=== PATIENT | male | born 1960 | race Caucasian/White ===

== ENCOUNTER 2019-10-29 10:52 | Inpatient (IN) | payer BC ==
[2019-10-29] MEDS ORDERED: IPRATROPIUM 0.5 MG/2.5 ML NEBU INHALATION STA (11:14)
[2019-10-29] MEDS ORDERED: SODIUM CHLORIDE 0.9% 1,000 ML IV STA (11:14)
[2019-10-29] MEDS ORDERED: methylPREDNISolone SOD SUCCI 125 MG/2 ML VIAL IV STA (11:14)
[2019-10-29] MEDS ORDERED: ALBUTEROL NEBULIZED 2.5 MG/3 ML INHALATION STA (11:14)
--- NOTE | 2019-10-29 11:17 | ED ---
General Adult HPI - General Chief complaint: Shortness of Breath Stated complaint: ADRIEN Time Seen by Provider: 10/29/19 10:55 Source: patient, EMS, RN notes reviewed, old records reviewed Mode of arrival: EMS Limitations: no limitations - History of Present Illness Initial comments: This is a 59-year-old male who presents emergency department with past medical history significant for COPD. Patient comes in because since three-day history of shortness of breath. Patient states she's also drinking a pint of liquor every single day. Patient states that he also continues smoking. Patient states that the difficulty breathing is gotten worse over the last 3 days. Patient also states he is overall feeling considerably weaker but he thinks is because he is not eating because he is taking so much alcohol. Patient denies any chest pain or palpitations. Patient denies any fever chills or cough per patient denies abdominal pain patient denies nausea vomiting diarrhea. - Related Data Home Medications Medication Instructions Recorded Confirmed FLUoxetine HCL 20 mg PO DAILY 06/28/19 06/28/19 Fluticasone Propionate 110 Mcg 2 puff INHALATION BID PRN 06/28/19 06/29/19 [Flovent 110 Mcg Inhaler (Mhu)] Lisinopril 40 mg PO DAILY 06/28/19 06/28/19 Omeprazole 20 mg PO DAILY 06/28/19 06/28/19 Umeclidinium Brm/Vilanterol Tr 1 puff INHALATION DAILY 06/28/19 06/28/19 [Anoro Ellipta 62.5-25 Mcg INH] hydrOXYzine HCL 25 mg PO HS PRN 06/28/19 06/28/19 traZODone HCL 100 mg PO HS PRN 06/28/19 06/28/19 Previous Rx's Medication Instructions Recorded Amoxicillin/Potassium Clav 1 tab PO Q12HR #14 tab 07/04/19 [Augmentin 875-125 Tablet] Aspirin 81 mg PO DAILY chew 07/04/19 Atorvastatin [Lipitor] 80 mg PO DAILY #30 tab 07/04/19 Metoprolol Tartrate [Lopressor] 25 mg PO BID #60 tab 07/04/19 Thiamine [Vitamin B-1] 100 mg PO BID-W/MEALS tab 07/04/19 amLODIPine [Norvasc] 5 mg PO DAILY #30 tab 07/04/19 predniSONE [Deltasone] 40 mg PO DAILY 4 Days #4 tab 07/04/19 Allergies Allergy/AdvReac Type Severity Reaction Status Date / Time No Known Allergies Allergy Verified 10/29/19 10:57 Review of Systems ROS Statement: Those systems with pertinent positive or pertinent negative responses have been documented in the HPI. ROS Other: All systems not noted in ROS Statement are negative. Past Medical History Past Medical History: COPD, Hypertension History of Any Multi-Drug Resistant Organisms: None Reported Additional Past Surgical History / Comment(s): left arm ortho surg. Past Psychological History: Anxiety Smoking Status: Current some day smoker Past Alcohol Use History: Daily Past Drug Use History: None Reported - Past Family History Father Additional Family Medical History / Comment(s): alzheimers dementia Mother Additional Family Medical History / Comment(s): non hodgkin lymphoma General Exam - General Exam Comments Initial Comments: GENERAL: Patient is well-developed and well-nourished. Patient is nontoxic and well- hydrated and is in mild distress. ENT: Neck is soft and supple. No significant lymphadenopathy is noted. Oropharynx is clear. Moist mucous membranes. Neck has full range of motion without eliciting any pain. EYES: The sclera were anicteric and conjunctiva were pink and moist. Extraocular movements were intact and pupils were equal round and reactive to light. Eyelids were unremarkable. PULMONARY: Unlabored respirations. Patient has expiratory wheezing bilaterally and some crackles bilaterally CARDIOVASCULAR: There is a regular rate and rhythm without any murmurs gallops or rubs. ABDOMEN: Soft and nontender with normal bowel sounds. SKIN: Skin is clear with no lesions or rashes and otherwise unremarkable. NEUROLOGIC: Patient is alert and oriented x3. Cranial nerves II through XII are grossly intact. Motor and sensory are also intact. Normal speech, volume and content. Symmetrical smile. MUSCULOSKELETAL: Normal extremities with adequate strength and full range of motion. No lower extremity swelling or edema. No calf tenderness. LYMPHATICS: No significant lymphadenopathy is noted PSYCHIATRIC: Normal psychiatric evaluation. Limitations: no limitations Course Vital Signs 10/29/19 10/29/19 10/29/19 10:53 10:57 11:28 Pulse Rate 118 H Respiratory 20 24 Rate Blood Pressure 163/92 O2 Sat by Pulse 83 L 100 Oximetry 10/29/19 10/29/19 10/29/19 12:17 12:25 12:52 Pulse Rate 102 H 103 H 105 H Respiratory 20 Rate Blood Pressure 151/89 O2 Sat by Pulse 100 Oximetry Medical Decision Making - Medical Decision Making EKG shows sinus tachycardia at 106 bpm OK interval 266 dresses 94 QT interval 396 QTC is 526. Patient's EKG shows diffuse T-wave inversions however that was seen on a previous EKG. Patient received 2 breathing treatments steroids in the emergency department after the treatments I listened to be still wheezing but he felt much better. Patient was extremely hungry so the patient was fed emergency department. Dr. Sullivan was contacted he agreed to admit the patient admitted the patient wrote admitting orders. - Lab Data Result diagrams: 10/29/19 11:02 10/29/19 11:02 Lab Results 10/29/19 10/29/19 10/29/19 Range/Units 11:02 11:02 11:02 WBC 12.9 H (3.8-10.6) k/uL RBC 4.34 (4.30-5.90) m/uL Hgb 15.8 (13.0-17.5) gm/dL Hct 53.1 H (39.0-53.0) % MCV 122.2 H (80.0-100.0) fL MCH 36.3 H (25.0-35.0) pg MCHC 29.7 L (31.0-37.0) g/dL RDW 15.1 (11.5-15.5) % Plt Count 229 (150-450) k/uL Neutrophils % (Manual) 85 % Lymphocytes % (Manual) 12 % Monocytes % (Manual) 2 % Eosinophils % (Manual) 1 % Neutrophils # (Manual) 10.97 H (1.3-7.7) k/uL Lymphocytes # (Manual) 1.55 (1.0-4.8) k/uL Monocytes # (Manual) 0.26 (0-1.0) k/uL Eosinophils # (Manual) 0.13 (0-0.7) k/uL Nucleated RBCs 0 (0-0) /100 WBC Manual Slide Review Performed Hypochromasia Marked Poikilocytosis (manual Present Anisocytosis (manual) Present Macrocytosis Marked A Stomatocytes Present PT 10.1 (9.0-12.0) sec INR 1.0 (<1.2) APTT 25.3 (22.0-30.0) sec Sodium 140 (137-145) mmol/L Potassium 3.7 (3.5-5.1) mmol/L Chloride 87 L (98-107) mmol/L Carbon Dioxide 50 H* (22-30) mmol/L Anion Gap 3 mmol/L BUN 14 (9-20) mg/dL Creatinine 0.70 (0.66-1.25) mg/dL Est GFR (CKD-EPI)AfAm >90 (>60 ml/min/1.73 sqM) Est GFR (CKD-EPI)NonAf >90 (>60 ml/min/1.73 sqM) Glucose 133 H (74-99) mg/dL Plasma Lactic Acid Heber (0.7-2.0) mmol/L Calcium 8.8 (8.4-10.2) mg/dL Magnesium 1.2 L (1.6-2.3) mg/dL Total Bilirubin 0.7 (0.2-1.3) mg/dL AST 46 (17-59) U/L ALT 29 (4-49) U/L Alkaline Phosphatase 90 (38-126) U/L Troponin I (0.000-0.034) ng/mL NT-Pro-B Natriuret Pep pg/mL Total Protein 5.6 L (6.3-8.2) g/dL Albumin 3.1 L (3.5-5.0) g/dL Serum Alcohol <10 mg/dL 10/29/19 10/29/19 10/29/19 Range/Units 11:02 11:02 11:02 WBC (3.8-10.6) k/uL RBC (4.30-5.90) m/uL Hgb (13.0-17.5) gm/dL Hct (39.0-53.0) % MCV (80.0-100.0) fL MCH (25.0-35.0) pg MCHC (31.0-37.0) g/dL RDW (11.5-15.5) % Plt Count (150-450) k/uL Neutrophils % (Manual) % Lymphocytes % (Manual) % Monocytes % (Manual) % Eosinophils % (Manual) % Neutrophils # (Manual) (1.3-7.7) k/uL Lymphocytes # (Manual) (1.0-4.8) k/uL Monocytes # (Manual) (0-1.0) k/uL Eosinophils # (Manual) (0-0.7) k/uL Nucleated RBCs (0-0) /100 WBC Manual Slide Review Hypochromasia Poikilocytosis (manual Anisocytosis (manual) Macrocytosis Stomatocytes PT (9.0-12.0) sec INR (<1.2) APTT (22.0-30.0) sec Sodium (137-145) mmol/L Potassium (3.5-5.1) mmol/L Chloride (98-107) mmol/L Carbon Dioxide (22-30) mmol/L Anion Gap mmol/L BUN (9-20) mg/dL Creatinine (0.66-1.25) mg/dL Est GFR (CKD-EPI)AfAm (>60 ml/min/1.73 sqM) Est GFR (CKD-EPI)NonAf (>60 ml/min/1.73 sqM) Glucose (74-99) mg/dL Plasma Lactic Acid Heber 0.8 (0.7-2.0) mmol/L Calcium (8.4-10.2) mg/dL Magnesium (1.6-2.3) mg/dL Total Bilirubin (0.2-1.3) mg/dL AST (17-59) U/L ALT (4-49) U/L Alkaline Phosphatase (38-126) U/L Troponin I 0.041 H* (0.000-0.034) ng/mL NT-Pro-B Natriuret Pep 5580 pg/mL Total Protein (6.3-8.2) g/dL Albumin (3.5-5.0) g/dL Serum Alcohol mg/dL Disposition Clinical Impression: Acute exacerbation of chronic obstructive pulmonary disease Disposition: ADMITTED IP TO THIS HOSP Referrals: Justin Juarez DO [Primary Care Provider] - 1-2 days Time of Disposition: 13:21
[2019-10-29 11:40] LABS: ALT 29 U/L (4-49); AST 46 U/L (17-59); African American GFR (CKD) >90 (>60 ml/min/1.73 sqM); Albumin 3.1 g/dL (3.5-5.0); Alcohol <10 mg/dL; Alkaline Phosphatase 90 U/L (38-126); Blood Urea Nitrogen 14 mg/dL (9-20); Calcium 8.8 mg/dL (8.4-10.2); Chloride 87 mmol/L (98-107); Glucose 133 mg/dL (74-99); Magnesium 1.2 mg/dL (1.6-2.3); Non-African American GFR(CKD) >90 (>60 ml/min/1.73 sqM); Potassium 3.7 mmol/L (3.5-5.1); Sodium 140 mmol/L (137-145); Total Bilirubin 0.7 mg/dL (0.2-1.3); Total Protein 5.6 g/dL (6.3-8.2)
--- NOTE | 2019-10-29 11:42 | XR ---
EXAMINATION TYPE: XR chest 2V DATE OF EXAM: 10/29/2019 COMPARISON: 07/01/2019 TECHNIQUE: PA and lateral views submitted. HISTORY: Shortness of breath FINDINGS: The lungs are clear and there is no pneumothorax, pleural effusion, or focal pneumonia. Hyperinflat ion noted. Arthropathy of the left shoulder. Hypertrophic and degenerative change of the spine. Hyper inflation suggests COPD. IMPRESSION: 1. No acute process.
[2019-10-29 11:45] LABS: HCT 53.1 % (39.0-53.0); HGB 15.8 gm/dL (13.0-17.5); Hypochromasia Marked; MCH 36.3 pg (25.0-35.0); MCHC 29.7 g/dL (31.0-37.0); MCV 122.2 fL (80.0-100.0); Macrocytosis Marked; Mean Platelet Volume 9.8; Platelet Count 229 k/uL (150-450); RBC 4.34 m/uL (4.30-5.90); RDW 15.1 % (11.5-15.5); WBC 12.9 k/uL (3.8-10.6)
[2019-10-29 11:46] LABS: Anion Gap 3 mmol/L
[2019-10-29 11:50] LABS: Partial Thromboplastin Time 25.3 sec (22.0-30.0); Prothrombin Time 10.1 sec (9.0-12.0)
[2019-10-29 11:52] LABS: Carbon Dioxide 50 mmol/L (22-30)
[2019-10-29 12:55] LABS: Eosinophils # (M) 0.13 k/uL (0-0.7); Lymphocytes # (M) 1.55 k/uL (1.0-4.8); Monocytes # (M) 0.26 k/uL (0-1.0); Neutrophils # (M) 10.97 k/uL (1.3-7.7); Neutrophils % (M) 85 %; Nucleated Red Blood Cells 0 /100 WBC (0-0); Total Cells Counted 100
[2019-10-29 12:56] LABS: Anisocytosis (M) Present; Poikilocytosis (M) Present; Stomatocytes Present
[2019-10-29] MEDS ORDERED: THIAMINE 100 MG/ML 2 ML VIAL IM STA (13:21)
[2019-10-29] MEDS ORDERED: LORazepam 2 MG/ML INJ IV PRN ×3 (13:21)
[2019-10-29] MEDS ORDERED: IPRATROPIUM-ALBUTEROL 3 ML NEB INHALATION PRN (13:21)
--- NOTE | 2019-10-29 16:03 | P.HPIM ---
History of Present Illness 59-year-old male with known history of COPD uses 2.5 L of oxygen at home and used to smokes about 40 cigarettes per day. Patient and are not orthopnea proximal nocturnal dyspnea.chest x-ray did not show any pneumonia. Patient does drink 1 pint of hard liquor every day. Patient drinks less than smokes less when she when he is with the girlfriend patient. Patient denied any abdominal pain nausea vomiting diarrhea. Review of Systems REVIEW OF SYSTEMS: CONSTITUTIONAL: No fever, no malaise, no fatigue. HEENT: No recent visual problems or hearing problems. Denied any sore throat. CARDIOVASCULAR: No chest pain, orthopnea, PND, no palpitations, no syncope. PULMONARY: as mentioned in HPI GASTROINTESTINAL: No diarrhea, no nausea, no vomiting, no abdominal pain. NEUROLOGICAL: No headaches, no weakness, no numbness. HEMATOLOGICAL: Denies any bleeding or petechiae. GENITOURINARY: Denies any burning micturition, frequency, or urgency. MUSCULOSKELETAL/RHEUMATOLOGICAL: Denies any joint pain, swelling, or any muscle pain. ENDOCRINE: Denies any polyuria or polydipsia. The rest of the 14-point review of systems is negative. Past Medical History Past Medical History: COPD, Hypertension History of Any Multi-Drug Resistant Organisms: None Reported Additional Past Surgical History / Comment(s): left arm ortho surg. Past Anesthesia/Blood Transfusion Reactions: No Reported Reaction Past Psychological History: Anxiety Smoking Status: Current some day smoker Past Alcohol Use History: Daily Additional Past Alcohol Use History / Comment(s): 1-2 rum and cokes/day Past Drug Use History: None Reported - Past Family History Father Additional Family Medical History / Comment(s): alzheimers dementia Mother Additional Family Medical History / Comment(s): non hodgkin lymphoma Medications and Allergies Home Medications Medication Instructions Recorded Confirmed Type FLUoxetine HCL 20 mg PO DAILY 06/28/19 10/29/19 History Fluticasone Propionate 110 Mcg 2 puff INHALATION RT-BID PRN 06/28/19 10/29/19 History [Flovent 110 Mcg Inhaler (M[facility])] Lisinopril 40 mg PO DAILY 06/28/19 10/29/19 History Omeprazole 20 mg PO DAILY 06/28/19 10/29/19 History Umeclidinium Brm/Vilanterol Tr 1 puff INHALATION RT-DAILY 06/28/19 10/29/19 History [Anoro Ellipta 62.5-25 Mcg INH] hydrOXYzine HCL 25 mg PO HS 06/28/19 10/29/19 History traZODone HCL 100 mg PO HS PRN 06/28/19 10/29/19 History Aspirin 81 mg PO DAILY chew 07/04/19 10/29/19 Rx Cholecalciferol [Vitamin D3 (25 1,000 unit PO DAILY 10/29/19 10/29/19 History Mcg = 1000 Iu)] Magnesium 250 mg PO DAILY 10/29/19 10/29/19 History traMADol HCl [Ultram] 50 mg PO Q6H PRN 10/29/19 10/29/19 History Allergies Allergy/AdvReac Type Severity Reaction Status Date / Time No Known Allergies Allergy Verified 10/29/19 13:55 Physical Exam Vitals: Vital Signs Pulse Resp BP Pulse Ox 10/29/19 13:45 91 18 153/96 98 10/29/19 12:52 105 H 10/29/19 12:25 103 H 10/29/19 12:17 102 H 20 151/89 100 10/29/19 11:28 163/92 100 10/29/19 10:57 24 10/29/19 10:53 118 H 20 83 L Intake and Output 10/29/19 10/29/19 10/29/19 06:59 14:59 22:59 Other: Weight 72.575 kg PHYSICAL EXAMINATION: GENERAL: The patient is alert and oriented x3, not in any acute distress. Well developed, well nourished. HEENT: Pupils are round and equally reacting to light. EOMI. No scleral icterus. No conjunctival pallor. Normocephalic, atraumatic. No pharyngeal erythema. No thyromegaly. CARDIOVASCULAR: S1 and S2 present. No murmurs, rubs, or gallops. PULMONARY: minimal expiratory wheezing on exam no crackles were appreciated ABDOMEN: Soft, nontender, nondistended, normoactive bowel sounds. No palpable organomegaly. MUSCULOSKELETAL: No joint swelling or deformity. EXTREMITIES: No cyanosis, clubbing, or pedal edema. NEUROLOGICAL: Gross neurological examination did not reveal any focal deficits. SKIN: No rashes. Results CBC & Chem 7: 10/29/19 11:02 10/29/19 11:02 Labs: Abnormal Lab Results - Last 24 Hours (Table) 10/29/19 10/29/19 10/29/19 Range/Units 11:02 11:02 11:02 WBC 12.9 H (3.8-10.6) k/uL Hct 53.1 H (39.0-53.0) % MCV 122.2 H (80.0-100.0) fL MCH 36.3 H (25.0-35.0) pg MCHC 29.7 L (31.0-37.0) g/dL Neutrophils # (Manual) 10.97 H (1.3-7.7) k/uL Macrocytosis Marked A Chloride 87 L (98-107) mmol/L Carbon Dioxide 50 H* (22-30) mmol/L Glucose 133 H (74-99) mg/dL Magnesium 1.2 L (1.6-2.3) mg/dL Troponin I 0.041 H* (0.000-0.034) ng/mL Total Protein 5.6 L (6.3-8.2) g/dL Albumin 3.1 L (3.5-5.0) g/dL Thrombosis Risk Factor Assmnt - Choose All That Apply Each Factor Represents 1 point: Age 41-60 years Thrombosis Risk Factor Assessment Total Risk Factor Score: 1 Thrombosis Risk Factor Assessment Level: Low Risk Assessment and Plan Plan: -acute on chronic hypercapnic Respiratory failure secondary to COPD exacerbation patient is presently on 4 L of onset and uses 2 L of at home patient doesn't have much of wheezing on exam patient will be switched to oral steroids continue with inhalational steroids and inhalational treatments. -alcohol abuse: Patient will be monitored for alcohol withdrawal patient will be on Ativan [facility] protocol -Depression/anxiety disorder -Continued nicotine use: Counseling was provided -Hyperlipidemia -Gastroesophageal reflux disease -DVT prophylaxis Lovenox
[2019-10-29] MEDS: THIAMINE 100 MG TAB PO SCH (16:37)
[2019-10-29] MEDS: PANTOPRAZOLE 40 MG/10 ML VIAL IVP SCH (16:37)
[2019-10-29] MEDS ORDERED: methylPREDNISolone SOD SUCCI 125 MG/2 ML VIAL IV SCH (18:00)
[2019-10-30] MEDS: THIAMINE 100 MG TAB PO SCH ×2 (06:14→17:02)
[2019-10-30] MEDS: IPRATROPIUM 0.5 MG/2.5 ML NEBU INHALATION SCH ×4 (08:00→19:07)
[2019-10-30] MEDS: FORMOTEROL FUMARATE 20 MCG/2 ML NEBU INHALATION SCH ×2 (08:00→19:07)
[2019-10-30] MEDS: predniSONE 20 MG TAB PO SCH (08:32)
[2019-10-30] MEDS: MAGNESIUM OXIDE 400 MG TAB PO SCH (08:32)
[2019-10-30] MEDS: ASPIRIN 81 MG PO SCH (08:32)
[2019-10-30] MEDS: FLUoxetine HCL 20 MG CAP PO SCH (08:32)
[2019-10-30] MEDS: PANTOPRAZOLE 40 MG/10 ML VIAL IVP SCH (08:33)
[2019-10-30] MEDS ORDERED: ENOXAPARIN 40 MG/0.4 ML SYRINGE SQ SCH (09:00)
[2019-10-30] MEDS ORDERED: LISINOPRIL 20 MG TAB PO SCH (09:00)
[2019-10-30 11:10] LABS: African American GFR (CKD) >90 (>60 ml/min/1.73 sqM); Blood Urea Nitrogen 18 mg/dL (9-20); Calcium 8.9 mg/dL (8.4-10.2); Chloride 86 mmol/L (98-107); Glucose 126 mg/dL (74-99); Magnesium 1.2 mg/dL (1.6-2.3); Non-African American GFR(CKD) >90 (>60 ml/min/1.73 sqM); Potassium 4.3 mmol/L (3.5-5.1); Sodium 141 mmol/L (137-145)
--- NOTE | 2019-10-30 11:16 | P.PN ---
Subjective Patient is not having much of withdrawals patient last alcohol use was a on Saturday. Patient although doesn't have much air movement patient will be continued on oral steroids continue with inhalational treatments will be monitored for 1 more day for withdrawals. Possibly of discharge tomorrow we'll obtain PT and OT consultation. Constitutional: Denied any fatigue denied any fever. Cardio vascular: denied any chest pain, palpitations Gastrointestinal denied any nausea vomiting Pulmonary: Denied any shortness of breath cough Neurologic denied any new focal deficits All inpatient medications were reviewed and appropriate changes in these medications as dictated in the interval history and assessment and plan. Objective - Vital Signs Vital signs: Vital Signs Temp 98.1 F 10/30/19 08:20 Pulse 101 H 10/30/19 08:20 Resp 18 10/30/19 08:20 BP 149/81 10/30/19 08:20 Pulse Ox 97 10/30/19 00:00 Intake & Output 10/29/19 10/30/19 10/30/19 18:59 06:59 18:59 Intake Total 200 900 Balance 200 900 Weight 72.575 kg 63.5 kg Intake: Intake, IV Titration 900 Amount Sodium Chloride 0.9% 1, 900 000 ml @ 999 mls/hr IV . Q1H1M STA Rx#:[id number] Oral 200 Other: Voiding Method Urinal # Voids 1 - Exam PHYSICAL EXAMINATION: GENERAL: The patient is alert and oriented x3, not in any acute distress. Well developed, well nourished. HEENT: Pupils are round and equally reacting to light. EOMI. No scleral icterus. No conjunctival pallor. Normocephalic, atraumatic. No pharyngeal erythema. No thyromegaly. CARDIOVASCULAR: S1 and S2 present. No murmurs, rubs, or gallops. PULMONARY: minimal expiratory wheezing on exam no crackles were appreciated ABDOMEN: Soft, nontender, nondistended, normoactive bowel sounds. No palpable organomegaly. MUSCULOSKELETAL: No joint swelling or deformity. EXTREMITIES: No cyanosis, clubbing, or pedal edema. NEUROLOGICAL: Gross neurological examination did not reveal any focal deficits. SKIN: No rashes. - Labs CBC & Chem 7: 10/29/19 11:02 10/30/19 10:35 Labs: Abnormal Lab Results - Last 24 Hours (Table) 10/29/19 10/29/19 10/29/19 Range/Units 11:02 11:02 11:02 WBC 12.9 H (3.8-10.6) k/uL Hct 53.1 H (39.0-53.0) % MCV 122.2 H (80.0-100.0) fL MCH 36.3 H (25.0-35.0) pg MCHC 29.7 L (31.0-37.0) g/dL Neutrophils # (Manual) 10.97 H (1.3-7.7) k/uL Macrocytosis Marked A Chloride 87 L (98-107) mmol/L Carbon Dioxide 50 H* (22-30) mmol/L Glucose 133 H (74-99) mg/dL Magnesium 1.2 L (1.6-2.3) mg/dL Troponin I 0.041 H* (0.000-0.034) ng/mL Total Protein 5.6 L (6.3-8.2) g/dL Albumin 3.1 L (3.5-5.0) g/dL Assessment and Plan Plan: -acute on chronic hypercapnic Respiratory failure secondary to COPD exacerbation improved compared to yesterday patient will continued on steroids patient is presently intubated is frogs and which he wears at home -alcohol abuse: Patient will be monitored for alcohol withdrawal patient will be on Ativan [facility] protocol no significant withdrawals at this time monitor 1 more day -Depression/anxiety disorder -Continued nicotine use: Counseling was provided -Hyperlipidemia -Gastroesophageal reflux disease Generalized weakness: PT and OT evaluation -DVT prophylaxis Lovenox
[2019-10-30 11:18] LABS: Anion Gap 1 mmol/L
[2019-10-30 11:19] LABS: Carbon Dioxide 54 mmol/L (22-30)
--- NOTE | 2019-10-30 13:54 | P.CNPUL ---
History of Present Illness Consult date: 10/30/19 Requesting physician: Angelita Sullivan Reason for consult: dyspnea Chief complaint: Shortness of breath History of present illness: 58-year-old white male patient of Dr. Juarez, we had previously seen in consultation back in June for acute exacerbation of COPD, presented to the hospital on 10/29/2019 with complaints of 3 day history of increasing dyspnea. Patient is a chronic smoker, currently smoking a pack a day, he is also a heavy drinker, has been drinking a pint of liquor every single day. Patient is having difficulty ambulating related to his increased shortness of breath, he has had poor appetite related to his increased alcohol intake. Denied any chest pain, denied any fever, chills, cough or phlegm production, no nausea vomiting or diarrhea. His past medical history is significant for hypertension, previous non-ST elevated myocardial infarction, [id number] smoking history, family history of heart disease in his father. Of note patient had a cardiac catheter ization in June 2019, showed no significant obstructive coronary artery disease. Echocardiogram showed preserved LV function with an EF of 60-65%, mild to moderate enlargement of the right ventricle, mildly thickened aortic valve which was trileaflet, trace mitral regurg, mild tricuspid regurg, and no evidence of pulmonary hypertension. His home inhalers include Anoro Ellipta, Flovent. Patient never followed up in the pulmonary clinic following his hospitalization in [place] 2019. Chest x-ray showed no acute process. EKG showed a sinus tachycardia at the rate of 106, possibly ectopic atrial tachycardia, ST and T-wave abnormality with consideration for inferior ischemia, and anterolateral ischemia and prolongation of the QT interval with QT/QTC interval of 396 and 526 ms. Lab work has been reviewed showing white blood cell 12.9, hemoglobin of 15.8, INR is 1.0, sodium was 140, potassium 3.7, chloride was 87, CO2 was 50, BUN was 14, creatinine 0.70, troponin was elevated at 0.041, proBNP 5580, serum alcohol is less than 10, coronavirus PCR was negative. Patient has been afebrile, tachycardic, blood pressure has been within normal limits, he is on 3 L of oxygen, was hypoxic on admission with a pulse ox of 83% room air, currently satting 97%. Patient has been started on nebulized treatments, IV steroids, CIWA protocol. Review of Systems All systems: negative Constitutional: Denies chills, Denies fever Eyes: denies blurred vision, denies pain Ears, nose, mouth and throat: Denies headache, Denies sore throat Cardiovascular: Denies chest pain, Denies shortness of breath Respiratory: Reports dyspnea, Denies cough Gastrointestinal: Denies abdominal pain, Denies diarrhea, Denies nausea, Denies vomiting Musculoskeletal: Denies myalgias Integumentary: Denies pruritus, Denies rash Neurological: Denies numbness, Denies weakness Psychiatric: Denies anxiety, Denies depression Endocrine: Denies fatigue, Denies weight change Past Medical History Past Medical History: COPD, Hypertension History of Any Multi-Drug Resistant Organisms: None Reported Additional Past Surgical History / Comment(s): left arm ortho surg. Past Anesthesia/Blood Transfusion Reactions: No Reported Reaction Past Psychological History: Anxiety Smoking Status: Current some day smoker Past Alcohol Use History: Daily Additional Past Alcohol Use History / Comment(s): 1-2 rum and cokes/day Past Drug Use History: None Reported - Past Family History Father Additional Family Medical History / Comment(s): alzheimers dementia Mother Additional Family Medical History / Comment(s): non hodgkin lymphoma Medications and Allergies Home Medications Medication Instructions Recorded Confirmed Type FLUoxetine HCL 20 mg PO DAILY 06/28/19 10/29/19 History Fluticasone Propionate 110 Mcg 2 puff INHALATION RT-BID PRN 06/28/19 10/29/19 History [Flovent 110 Mcg Inhaler (Mhu)] Lisinopril 40 mg PO DAILY 06/28/19 10/29/19 History Omeprazole 20 mg PO DAILY 06/28/19 10/29/19 History Umeclidinium Brm/Vilanterol Tr 1 puff INHALATION RT-DAILY 06/28/19 10/29/19 History [Anoro Ellipta 62.5-25 Mcg INH] hydrOXYzine HCL 25 mg PO HS 06/28/19 10/29/19 History traZODone HCL 100 mg PO HS PRN 06/28/19 10/29/19 History Aspirin 81 mg PO DAILY chew 07/04/19 10/29/19 Rx Cholecalciferol [Vitamin D3 (25 1,000 unit PO DAILY 10/29/19 10/29/19 History Mcg = 1000 Iu)] Magnesium 250 mg PO DAILY 10/29/19 10/29/19 History traMADol HCl [Ultram] 50 mg PO Q6H PRN 10/29/19 10/29/19 History Allergies Allergy/AdvReac Type Severity Reaction Status Date / Time No Known Allergies Allergy Verified 10/29/19 13:55 Physical Exam Vitals: Vital Signs Temp Pulse Pulse Resp BP BP Pulse Ox 10/30/19 11:33 100 10/30/19 11:21 98 10/30/19 08:20 98.1 F 101 H 18 149/81 10/30/19 08:19 102 H 10/30/19 08:09 100 10/30/19 08:00 100 10/30/19 04:00 98.2 F 104 H 16 114/74 10/30/19 00:00 97.7 F 95 16 133/78 97 10/29/19 20:00 97.9 F 96 16 115/64 95 10/29/19 14:30 98.1 F 113 H 18 125/75 91 L 10/29/19 13:45 91 18 153/96 98 Intake and Output 10/29/19 10/30/19 10/30/19 22:59 06:59 14:59 Intake Total 200 900 Balance 200 900 Intake: Intake, IV Titration 900 Amount Sodium Chloride 0.9% 1, 900 000 ml @ 999 mls/hr IV . Q1H1M STA Rx#:[id number] Oral 200 Other: Voiding Method Urinal # Voids 1 Weight 63.5 kg Results - Laboratory Findings CBC and BMP: 10/29/19 11:02 10/30/19 10:35 PT/INR, D-dimer PT 10.1 sec (9.0-12.0) 10/29/19 11:02 INR 1.0 (<1.2) 10/29/19 11:02 Abnormal lab findings: Abnormal Labs 10/29/19 10/29/19 10/29/19 11:02 11:02 11:02 WBC 12.9 H Hct 53.1 H MCV 122.2 H MCH 36.3 H MCHC 29.7 L Neutrophils # (Manual) 10.97 H Macrocytosis Marked A Chloride 87 L Carbon Dioxide 50 H* Glucose 133 H Magnesium 1.2 L Troponin I 0.041 H* Total Protein 5.6 L Albumin 3.1 L 10/30/19 10:35 WBC Hct MCV MCH MCHC Neutrophils # (Manual) Macrocytosis Chloride 86 L Carbon Dioxide 54 H* Glucose 126 H Magnesium 1.2 L Troponin I Total Protein Albumin - Diagnostic Findings Chest x-ray: report reviewed Additional studies: EKG results reviewed Assessment and Plan Plan: Assessment: #1. Acute hypoxic respiratory failure, could be related to acute exacerbation of COPD, we'll order CTA chest to rule out possibility of pulmonary embolism #2. Acute alcohol withdrawal #3. Elevated troponin, and had a recent heart catheterization in June 2019 which showed no significant obstructive coronary artery disease #4. Chronic EtOH abuse #5. Chronic and ongoing history of smoking, currently smoking a pack a day, carries [id number] smoking history #6. Metabolic alkalosis, of unknown etiology, patient denies any nausea or vomiting #7. Hypomagnesemia #8. Hypertension #9. Family history of heart disease in his father Plan: Chest x-ray showed no acute process, he has been started on breathing treatments and steroids, will obtain CT chest to rule out possibility of pulmonary embolism, continue with CIWA protocol, thiamine replacement has been ordered. COVID 19 was ruled out. Continue close monitoring, continue safety precautions. Repeat labs in the morning I performed a history & physical examination of the patient and discussed their management with my nurse practitioner, Brittney Del Castillo. I reviewed the nurse trupti saeed's note and agree with the documented findings and plan of care. Lung sounds are positive for diminished breath sounds. The findings and the impression was discussed with the patient. I attest to the documentation by the nurse practitioner. Time with Patient: Greater than 30
--- NOTE | 2019-10-30 16:07 | CT ---
"EXAMINATION TYPE: CT chest angio for PE DATE OF EXAM: 10/30/2019 COMPARISON: Chest x-ray dated 10/29/2019 HISTORY: SOB, hx of COPD CT DLP: 316.6 mGycm. Automated Exposure Control for Dose Reduction was Utilized. CONTRAST: CTA scan of the thorax is performed with IV Contrast, patient injected with 75cc mL of Isovue 370, pu lmonary embolism protocol. MIP Images are created on CT scanner and reviewed. FINDINGS: LUNGS: Focal area of scarring that is subcentimeter contiguous with the adjacent pleura in the right lower lobe seen on image 116. Minimal bibasilar subsegmental atelectasis is appreciated. Mild diffuse peribronchial cuffing. Probable area of scarring along the right interlobar fissure. This is marked on image 79. Additional reticular density in the right middle lobe on image 103 subcentimeter. Anothe r area of linear lateral scarring of the right upper lobe on image 64. Evaluation of subcentimeter pu lmonary nodules slightly limited by respiratory motion. Linear possible left basilar scarring and andrea ge 102 laterally. Faint subcentimeter nodularity along the interlobar fissure on the left on image 53 .. There is no pleural effusion or pneumothorax seen. The tracheobronchial tree is patent. MEDIASTINUM: There is a small incompletely occlusive filling defect of a segmental pulmonary artery t o the left upper lobe anteriorly there also filling defects to the segmental and subsegmental branche s to the right lower lobe more definitive for pulmonary embolism. The main pulmonary artery is enlarg ed measuring 3.6 cm. The right ventricular to left ventricular ratio is abnormal however there is no bowing of the interventricular septum nor reflux of contrast into the inferior vena cava. Evaluation for coronary artery calcifications is limited given phase of contrast however at least mild coronary calcifications are seen. No aneurysmal dilatation of the thoracic aorta. Mild atherosclerosis of the thoracic aorta and more moderate of the visualized upper abdominal aorta. There are no greater than 1 cm hilar or mediastinal lymph nodes. No cardiomegaly or significant per icardial effusion is seen. OTHER: Calcified granuloma seen of the splenic parenchyma. There is a left renal lesion that is subce ntimeter but indeterminate possibly containing a deepening calcification. Nonemergent further workup recommended. Thickening of the bilateral adrenal gland seen, left greater than right, possibly on the basis of adrenal gland hyperplasia. Small adjacent lymph node measures 7 mm in short axis anterior t o the left adrenal isthmus. Gallbladder is contracted. Moderate degenerative change of the spine. IMPRESSION: 1. Small bilateral pulmonary emboli to the left upper lobe and right lower lobe with equivocal CT fin dings for right heart strain. 2. Multifocal probable pleural-parenchymal scars are seen with more focal consolidation along the rig ht interlobar fissure. Follow up CT chest is recommended in 3 months to evaluate for any progression or resolution given the nodular morphology of some of these areas. 3. Possible complex left renal lesion. Follow-up CT abdomen (three-phase renal mass protocol) is favian mmended for further evaluation. A [place] critical message alert has been initiated for Angelita Sullivan MD via the [employer] | Critical Results System on 10/30/2019 4:04 PM. This message alert has been sent to Angelita joseph MD via the preferences provided by the clinician for the receipt of Radiology Critical Findings. Message ID [id number]."
[2019-10-30] MEDS: MAGNESIUM SULFATE-D5W PMX 1 GM in DEXTROSE/WATER 1 100ML.BAG IVPB SCH ×3 (17:21→21:13)
[2019-10-30] MEDS: ENOXAPARIN 60 MG/0.6 ML SYRINGE SQ SCH (21:13)
[2019-10-31] MEDS: THIAMINE 100 MG TAB PO SCH (06:04)
[2019-10-31 07:19] LABS: HCT 45.6 % (39.0-53.0); HGB 14.3 gm/dL (13.0-17.5); Hypochromasia Marked; MCHC 31.3 g/dL (31.0-37.0); MCV 124.6 fL (80.0-100.0); Platelet Count 168 k/uL (150-450); RBC 3.66 m/uL (4.30-5.90); RDW 15.2 % (11.5-15.5); WBC 13.1 k/uL (3.8-10.6)
[2019-10-31 07:23] LABS: African American GFR (CKD) >90 (>60 ml/min/1.73 sqM); Blood Urea Nitrogen 15 mg/dL (9-20); Calcium 8.2 mg/dL (8.4-10.2); Chloride 86 mmol/L (98-107); Glucose 102 mg/dL (74-99); Magnesium 1.9 mg/dL (1.6-2.3); Non-African American GFR(CKD) >90 (>60 ml/min/1.73 sqM); Potassium 3.4 mmol/L (3.5-5.1); Sodium 138 mmol/L (137-145)
[2019-10-31 07:30] LABS: Macrocytosis Marked
[2019-10-31 07:32] LABS: Anion Gap -4 mmol/L
[2019-10-31 07:37] LABS: Carbon Dioxide 56 mmol/L (22-30)
[2019-10-31] MEDS: IPRATROPIUM 0.5 MG/2.5 ML NEBU INHALATION SCH ×3 (07:48→15:48)
[2019-10-31] MEDS: FORMOTEROL FUMARATE 20 MCG/2 ML NEBU INHALATION SCH (07:48)
[2019-10-31] MEDS ORDERED: POTASSIUM CHLORIDE ER 20 MEQ TAB.ER PO STA (08:26)
[2019-10-31] MEDS: PANTOPRAZOLE 40 MG/10 ML VIAL IVP SCH (08:56)
[2019-10-31] MEDS: predniSONE 20 MG TAB PO SCH (08:56)
[2019-10-31] MEDS: ASPIRIN 81 MG PO SCH (08:57)
[2019-10-31] MEDS: ENOXAPARIN 60 MG/0.6 ML SYRINGE SQ SCH (08:57)
[2019-10-31] MEDS: MAGNESIUM OXIDE 400 MG TAB PO SCH (08:57)
[2019-10-31] MEDS: FLUoxetine HCL 20 MG CAP PO SCH (08:57)
[2019-10-31] MEDS ORDERED: LISINOPRIL 20 MG TAB PO SCH (09:00)
[2019-10-31] MEDS ORDERED: MAGNESIUM SULFATE-D5W PMX 1 GM in DEXTROSE/WATER 1 100ML.BAG IVPB ONE (09:00)
[2019-10-31 11:50] VITALS: TEMP 98.1
--- NOTE | 2019-10-31 12:19 | P.PN ---
Subjective Progress Note Date: 10/31/19 Principal diagnosis: Acute hypoxic respiratory failure secondary to an acute exacerbation of COPD and small bilateral pulmonary emboli 58-year-old white male patient of Dr. Juarez, we had previously seen in consultation back in June for acute exacerbation of COPD, presented to the hospital on 10/29/2019 with complaints of 3 day history of increasing dyspnea. Patient is a chronic smoker, currently smoking a pack a day, he is also a heavy drinker, has been drinking a pint of liquor every single day. Patient is having difficulty ambulating related to his increased shortness of breath, he has had poor appetite related to his increased alcohol intake. Denied any chest pain, denied any fever, chills, cough or phlegm production, no nausea vomiting or diarrhea. His past medical history is significant for hypertension, previous non-ST elevated myocardial infarction, [id number] smoking history, family history of heart disease in his father. Of note patient had a cardiac catheterization in June 2019, showed no significant obstructive coronary artery disease. Echocardiogram showed preserved LV function with an EF of 60- 65%, mild to moderate enlargement of the right ventricle, mildly thickened aortic valve which was trileaflet, trace mitral regurg, mild tricuspid regurg, and no evidence of pulmonary hypertension. His home inhalers include Anoro Martha ship's captain, Flovent. Patient never followed up in the pulmonary clinic following his hospitalization in [place] 2019. Chest x-ray showed no acute process. EKG showed a sinus tachycardia at the rate of 106, possibly ectopic atrial tachycardia, ST and T-wave abnormality with consideration for inferior ischemia, and anterolateral ischemia and prolongation of the QT interval with QT/QTC interval of 396 and 526 ms. Lab work has been reviewed showing white blood cell 12.9, hemoglobin of 15.8, INR is 1.0, sodium was 140, potassium 3.7, chloride was 87, CO2 was 50, BUN was 14, creatinine 0.70, troponin was elevated at 0.041, proBNP 5580, serum alcohol is less than 10, coronavirus PCR was negative. Gabriele peng has been afebrile, tachycardic, blood pressure has been within normal limits, he is on 3 L of oxygen, was hypoxic on admission with a pulse ox of 83% room air, currently satting 97%. Patient has been started on nebulized treatments, IV steroids, CIWA protocol. The patient was seen today 10/31/2019 in follow-up on the selective care unit. He is awake and alert in no acute distress. He denies any worsening shortness of breath cough or congestion. No hemoptysis. He is maintaining O2 saturations in the 90s on 3 L/m per nasal cannula. He's afebrile. Hemodynamically stable. White count 13.1. Hemoglobin 14.3. Sodium 138. Potassium 3.4. Bicarb 56. Creatinine 0.70. Coronavirus not detected. CT angiogram revealed small bilateral pulmonary emboli to the left upper lobe and right lower lobe with equivocal CT findings for right heart strain. Multifocal probable pleural parenchymal scars seen with more focal consolidation along the right interlobar fissure. Possible complex left renal lesion. Follow-up CTs are recommended. He is currently on Lovenox 60 mg subcu every 12 hours. He remains on bronchodilators, oral prednisone. Objective - Vital Signs Vital signs: Vital Signs Temp 98.1 F 10/31/19 11:49 Pulse 91 10/31/19 11:49 Resp 20 10/31/19 11:49 BP 134/80 10/31/19 11:49 Pulse Ox 93 L 10/31/19 11:49 Intake & Output 10/30/19 10/31/19 10/31/19 18:59 06:59 18:59 Intake Total 800 450 Output Total 300 Balance 800 150 Weight 64.3 kg Intake: Intake, IV Titration 200 Amount Magnesium Sulfate-D5w Pmx 200 1 gm In Dextrose/Water 1 100ml.bag @ 100 mls/hr IVPB Q1H KALA Rx#: [id number] Oral 600 450 Output: Urine 300 Other: Voiding Method Urinal Urinal # Voids 1 1 - Exam GENERAL EXAM: Alert, pleasant 59-year-old gentleman, on 3 L nasal cannula comfortable in no apparent distress. HEAD: Normocephalic. EYES: Normal reaction of pupils, equal size. NOSE: Clear with pink turbinates. THROAT: No erythema or exudates. NECK: No masses, no JVD. CHEST: No chest wall deformity. LUNGS: Equal air entry with faint end expiratory wheeze, diminished. CVS: S1 and S2 normal with no audible murmur, regular rhythm. ABDOMEN: No hepatosplenomegaly, normal bowel sounds, no guarding or rigidity. SPINE: No scoliosis or deformity SKIN: No rashes CENTRAL NERVOUS SYSTEM: No focal deficits, tone is normal in all 4 extremities. EXTREMITIES: There is no peripheral edema. No clubbing, no cyanosis. Peripheral pulses are intact. - Labs CBC & Chem 7: 10/31/19 06:25 10/31/19 06:25 Labs: Abnormal Lab Results - Last 24 Hours (Table) 10/31/19 10/31/19 Range/Units 06:25 06:25 WBC 13.1 H (3.8-10.6) k/uL RBC 3.66 L (4.30-5.90) m/uL MCV 124.6 H (80.0-100.0) fL MCH 39.0 H (25.0-35.0) pg Macrocytosis Marked A Potassium 3.4 L (3.5-5.1) mmol/L Chloride 86 L (98-107) mmol/L Carbon Dioxide 56 H* (22-30) mmol/L Glucose 102 H (74-99) mg/dL Calcium 8.2 L (8.4-10.2) mg/dL Assessment and Plan Assessment: #1. Acute hypoxic respiratory failure, secondary to to acute exacerbation of COPD, as well as small bilateral pulmonary emboli #2. Acute alcohol withdrawal #3. Elevated troponin, and had a recent heart catheterization in June 2019 which showed no significant obstructive coronary artery disease #4. Chronic EtOH abuse #5. Chronic and ongoing history of smoking, currently smoking a pack a day, carries [id number] smoking history #6. Metabolic alkalosis, of unknown etiology, patient denies any nausea or vomiting #7. Hypomagnesemia #8. Hypertension #9. Family history of heart disease in his father Plan: The patient was seen and evaluated by Dr. Donald CT angiogram and labs reviewed Currently on Lovenox To be transitioned to Eliquis Cleared for discharge from the pulmonary standpoint Continue home pulmonary medications Complete a prednisone taper Follow-up in our office in 1-2 weeks' time I, the cosigning physician, performed a history & physical examination of the patient. Lungs sounds with faint index between wheeze, diminished. Maintaining good O2 saturations in the 90s on 3 L/m per nasal cannula. I discussed the assessment and plan of care with my nurse practitioner, Sierra Lofton. I attest to the above note as dictated by her.
--- NOTE | 2019-10-31 13:14 | P.DS ---
Providers Date of admission: 10/29/19 13:22 Attending physician: Angelita Sullivan Consults: 10/30/19 11:14 Consult Physician Routine Consulting Provider: John Donald Consult Reason/Comments: COPD Do you want consulting provider notified?: Yes [facility] Course: 59-year-old male was admitted for alcohol withdrawals patient doesn't have any withdrawals at this time. Patient was also treated for COPD exacerbation. Patient the had a CAT scan of the chest which showed pulmonary embolism and pulmonary nodules for pulmonary nodules patient will follow with pulmonology as an outpatient patient the will be switched to [place] and patient is medically stable doesn't have any wheezing will be discharged today patient has highly elevated serum bicarbonate will give him acetazolamide for for 5 days and basic metabolic profile will be ordered after 5 days which need to be followed by PCP and patient will be discharged today. Extensive smoking cessation and the alcohol cessation counseling was provided. Patient wears 2.5 L at home presently on 3 L here . PHYSICAL EXAMINATION: GENERAL: The patient is alert and oriented x3, not in any acute distress. Well developed, well nourished. HEENT: Pupils are round and equally reacting to light. EOMI. No scleral icterus. No conjunctival pallor. Normocephalic, atraumatic. No pharyngeal erythema. No thyromegaly. CARDIOVASCULAR: S1 and S2 present. No murmurs, rubs, or gallops. PULMONARY: expiratory wheeze fairly good air entry into bilateral lung rodriguez ABDOMEN: Soft, nontender, nondistended, normoactive bowel sounds. No palpable organomegaly. MUSCULOSKELETAL: No joint swelling or deformity. EXTREMITIES: No cyanosis, clubbing, or pedal edema. NEUROLOGICAL: Gross neurological examination did not reveal any focal deficits. SKIN: No rashes. Assessment and Plan Plan: -acute on chronic hypercapnic Respiratory failure secondary to COPD exacerbation improved e -alcohol abuse:patientn was treated for alcohol withdrawals. -Bilateral pulmonary embolism patient will be discharged on Eliquis -Pulmonary nodules follow-up with the per neurology as an outpatient -Depression/anxiety disorder -Continued nicotine use: Counseling was provided -Hyperlipidemia -Gastroesophageal reflux disease Plan - Discharge Summary Discharge Rx Participant: Yes New Discharge Prescriptions: New Apixaban [Eliquis Starter Pack (for VTE)] 0 mg PO DIRECTED 30 Days #1 pack acetaZOLAMIDE [Diamox] 250 mg PO DAILY #5 tablet predniSONE 10 mg PO DAILY #30 tab Lisinopril [Zestril] 20 mg PO DAILY tab Continue Umeclidinium Brm/Vilanterol Tr [Anoro Ellipta 62.5-25 Mcg INH] 1 puff INHALATION RT-DAILY Omeprazole 20 mg PO DAILY FLUoxetine HCL 20 mg PO DAILY traZODone HCL 100 mg PO HS PRN PRN Reason: SLEEP Fluticasone Propionate 110 Mcg [Flovent 110 Mcg Inhaler (Mhu)] 2 puff INHALATION RT-BID PRN PRN Reason: Shortness Of Breath Aspirin 81 mg PO DAILY chew Magnesium 250 mg PO DAILY Cholecalciferol [Vitamin D3 (25 Mcg = 1000 Iu)] 1,000 unit PO DAILY traMADol HCl [Ultram] 50 mg PO Q6H PRN PRN Reason: Pain Discontinued Lisinopril 40 mg PO DAILY hydrOXYzine HCL 25 mg PO HS Discharge Medication List FLUoxetine HCL 20 mg PO DAILY 06/28/19 [History] Fluticasone Propionate 110 Mcg [Flovent 110 Mcg Inhaler (Mhu)] 2 puff INHALATION RT-BID PRN 06/28/19 [History] Omeprazole 20 mg PO DAILY 06/28/19 [History] Umeclidinium Brm/Vilanterol Tr [Anoro Ellipta 62.5-25 Mcg INH] 1 puff INHALATION RT-DAILY 06/28/19 [History] traZODone HCL 100 mg PO HS PRN 06/28/19 [History] Aspirin 81 mg PO DAILY chew 07/04/19 [Rx] Cholecalciferol [Vitamin D3 (25 Mcg = 1000 Iu)] 1,000 unit PO DAILY 10/29/19 [History] Magnesium 250 mg PO DAILY 10/29/19 [History] traMADol HCl [Ultram] 50 mg PO Q6H PRN 10/29/19 [History] Apixaban [Eliquis Starter Pack (for VTE)] 0 mg PO DIRECTED 30 Days #1 pack 10/31/19 [Rx] Lisinopril [Zestril] 20 mg PO DAILY tab 10/31/19 [Rx] acetaZOLAMIDE [Diamox] 250 mg PO DAILY #5 tablet 10/31/19 [Rx] predniSONE 10 mg PO DAILY #30 tab 10/31/19 [Rx] Follow up Appointment(s)/Referral(s): Justin Juarez DO [Primary Care Provider] - 3 Days (please call Saturday morning for appointment time) John Donald MD [STAFF PHYSICIAN] - 2 Weeks (Please call Saturday am for appointment time) Patient Instructions/Handouts: COPD (Chronic Obstructive Pulmonary Disease) (DC), Abuse of Alcohol (DC) Discharge Disposition: HOME SELF-CARE
[2019-10-31 13:50] VITALS: BP 118/71; PULSE 88; RESP 16
[2019-11-01] MEDS ORDERED: PANTOPRAZOLE 40 MG TABLET PO SCH (09:00)
--- NOTE | 2019-11-02 08:47 | CDI ---
Documentation Clarification Form Date: 11/02/19 From: Sara Bourgeois Phone: If you have a question about this query, please contact Keisha Shaver, Fashion Designer at [phone] between 8am and 5pm. Admit Date: 10/29/19 Discharge Date:10/31/19 Patient Name: Wilfrido Acevedo Visit Number: [id number] ATTENTION: The Clinical Documentation Specialists (CDI) and [facility] Coding Staff appreciate your assistance in clarifying documentation. Please respond to the clarification below the line at the bottom and electronically sign. The CDI & [facility] Coding staff will review the response and follow-up if needed. Please note: Queries are made part of the Legal Health Record. If you have any questions, please contact the author of this message via ITS. Dear Dr. Sullivan Documentation and the location in the medical record included Alcohol Abuse in the H&P, discharge summary, your progress notes and Dr. Donald's consult note and progress note. Alcohol withdrawals was documented in the discharge summary, your 10/[address] Donald's progress notes. History/Risk Factors: Daily alcohol use, 1-2 rum and cokes/day Clinical Indicators: Tachycardia, no tremors, anxiety, nausea, vomiting or headache Labs: Alcohol level less than 10, magnesium 1.2, carbon dioxide 50, MCV 122.2, AST 46, ALT 29 Treatment: CIWA Protocol, patient did not require Ativan In your professional opinion, can you please clarify if the above clinical indicators and treatment signify any of the following? Alcohol withdrawal Ruled Out Alcohol withdrawal Alcohol dependence Alcohol abuse Alcohol abuse with preventative treatment for tremors Other, please specify Unable to determine Refer to my note it was already dictated in my note for further documentation will be MTDD
== END 2019-10-31 15:50 | disposition home or self-care (01) | DRG 190 ==
LOC: EC 10:52 → 3SCARD 13:22
PROVIDERS: ADMIT Internal Medicine; ATTEND Internal Medicine
DX: J44.1 Chronic obstructive pulmonary disease with (acute) exacerbation (principal); I26.99 Other pulmonary embolism without acute cor pulmonale; J96.21 Acute and chronic respiratory failure with hypoxia; J96.22 Acute and chronic respiratory failure with hypercapnia; E87.3 Alkalosis; F10.239 Alcohol dependence with withdrawal, unspecified; K21.9 Gastro-esophageal reflux disease without esophagitis; I10 Essential (primary) hypertension; F41.9 Anxiety disorder, unspecified; F32.9 Major depressive disorder, single episode, unspecified; F17.210 Nicotine dependence, cigarettes, uncomplicated; E83.42 Hypomagnesemia; E78.5 Hyperlipidemia, unspecified; R26.2 Difficulty in walking, not elsewhere classified; R91.8 Other nonspecific abnormal finding of lung field; R79.89 Other specified abnormal findings of blood chemistry; Z20.828 Contact with and (suspected) exposure to other viral communicable diseases; I07.1 Rheumatic tricuspid insufficiency; I25.2 Old myocardial infarction; Z79.82 Long term (current) use of aspirin; Z79.899 Other long term (current) drug therapy; Z99.81 Dependence on supplemental oxygen; Z71.6 Tobacco abuse counseling; Z80.7 Family history of other malignant neoplasms of lymphoid, hematopoietic and related tissues; Z82.0 Family history of epilepsy and other diseases of the nervous system; Z82.49 Family history of ischemic heart disease and other diseases of the circulatory system; Y90.0 Blood alcohol level of less than 20 mg/100 ml
CPT/HCPCS: 36415; 71046; 71275; 80048; 80053; 80320; 83605; 83735; 83880; 84484; 85025; 85027; 85610; 85730; 93005; 94640; 94760; 96360; 96361; 99285